=== PATIENT | male | born 1935 | race Caucasian/White ===

== ENCOUNTER 2018-06-22 12:42 | Emergency (ER) | payer MEDICARE, OTHER ==
[2018-06-22 12:48] VITALS: BP 143/47
[2018-06-22] MEDS ORDERED: DEXAMETHASONE 10 MG/ML VIAL PO STA (13:53)
[2018-06-22] MEDS ORDERED: CHERRY SYRUP 10 ML UDC PO ONE (13:54)
--- NOTE | 2018-06-22 14:10 | ED Physician Documentation ---
History of Present Illness - Stated complaint Stated Complaint: BACK PX - Chief complaint Chief Complaint: Back Pain - History obtained from History obtained from: Patient, Family - History of Present Illness Timing: How many days ago (several) Pain level max: 7 Pain level now: 4 - Additonal information Additional information: Patient is an 82-year-old male, retired [employer] who was moving boards on his deck the other day when he injured his back. Since that time. Has had intermittent back pain, pain has been radiating down the left leg into the left foot. Has had intermittent numbness and tingling to the foot. No loss of bowel or bladder control. Better with rest, worse with walking and standing. Review of Systems Constitutional: denies: Fever, Chills Cardiac: denies: Chest pain / pressure Respiratory: denies: Cough GI: denies: Abdominal Pain, Nausea, Vomiting, Diarrhea : denies: Unable to Void, Incontinent Skin: denies: Rash Musculoskeletal: denies: Neck pain PD PAST MEDICAL HISTORY - Past Medical History Cardiovascular: Hypertension, High cholesterol, Coronary artery disease Musculoskeletal: Gout - Past Surgical History Past Surgical History: Yes General: Appendectomy Ortho: Rotator cuff repair, Arthroscopic surgery Cardiovascular: Coronary stent HEENT: Cataracts - Present Medications Home Medications: Ambulatory Orders Medication Instructions Recorded Confirmed Methylprednisolone [Medrol] 4 mg PO DAILY #1 tab.ds.pk 06/22/18 - Allergies Allergies/Adverse Reactions: Allergies Allergy/AdvReac Type Severity Reaction Status Date / Time No Known Drug Allergies Allergy Verified 06/22/18 12:48 - Social History Does the pt smoke?: No Smoking Status: Never smoker Does the pt drink ETOH?: Yes Does the pt have substance abuse?: No - Immunizations Immunizations are current?: Yes PD ED PE NORMAL - Vitals Vital signs reviewed: Yes - General General: Alert and oriented X 3, No acute distress, Well developed/nourished - HEENT HEENT: Moist mucous membranes - Neck Neck: Supple, no meningeal sign, No bony TTP - Cardiac Cardiac: RRR - Respiratory Respiratory: No respiratory distress, Clear bilaterally - Abdomen Abdomen: Soft, Non tender, Non distended - Back Back: No CVA TTP, No spinal TTP, Other (No tenderness palpation or percussion. No midline Tenderness.) - Derm Derm: Warm and dry - Extremities Extremities: Other (Mild decreased sensation over the Lateral aspect of the foot. Neurovascularly intact. Good strength. Normal great toe extension. no saddle anesthesia) - Neuro Neuro: Alert and oriented X 3, No motor deficit - Psych Psych: Normal mood, Normal affect Results - Vitals Vitals: Vital Signs - 24 hr 06/22/18 12:43 Temperature 36.3 C L Heart Rate 53 L Respiratory 18 Rate Blood Pressure 143/47 H O2 Saturation 95 Oxygen O2 Source Room air PD MEDICAL DECISION MAKING - ED course Complexity details: re-evaluated patient, considered differential (no cauda equina, no spinal epidural abscess, no fracture, no aortic dissection or evidence of aneursym rupture), d/w patient, d/w family ED course: Patient is an 82-year-old male who presents to the emergency room with what appears to be sciatica. No evidence of cauda equina. He would likely benefit from an MRI but no MRI is available here today. Did discuss transfer, but he declines this at this time. He will follow-up with his doctor and have an outpatient MRI scheduled. Until then we will place him on a steroid taper. Declines any pain medication here or for home. Patient counseled regarding signs and symptoms for which I believe and urgent re-evaluation would be necessary. Patient with good understanding of and agreement to plan and is comfortable going home at this time This document was made in part using voice recognition software. While efforts are made to proofread this document, sound alike and grammatical errors may occur. - Sepsis Event Vital Signs: Vital Signs - 24 hr 06/22/18 12:43 Temperature 36.3 C L Heart Rate 53 L Respiratory 18 Rate Blood Pressure 143/47 H O2 Saturation 95 Oxygen O2 Source Room air Departure - Departure Disposition: 01 Home, Self Care Clinical Impression: Sciatica Qualifiers: Laterality: left Qualified Code(s): M54.32 - Sciatica, left side Condition: Good Instructions: ED Sciatica Follow-Up: AMARILYS PARKS SI [Primary Care Provider] - Tomorrow Prescriptions: Methylprednisolone [Medrol] 4 mg PO DAILY #1 tab.ds.pk Comments: Call Dr. Parks to schedule an urgent L spine MRI. Return if you worsen. Discharge Date/Time: 06/22/18 14:35
== END 2018-06-22 14:35 | disposition home or self-care (01) ==
LOC: ED 12:42
DX: M54.32 Sciatica, left side (principal); I10 Essential (primary) hypertension
CPT/HCPCS: 99283; A9270

== ENCOUNTER 2018-06-23 13:40 | Outpatient (CLI) | payer MEDICARE, OTHER ==
[2018-06-23] MEDS ORDERED: GADOBUTROL 7.5 MMOL/7.5 ML VIAL ONE (14:42)
[2018-06-23] MEDS ORDERED: GADOBUTROL 7.5 MMOL/7.5 ML VIAL IVP ONE (15:20)
--- NOTE | 2018-06-23 18:43 | MRI Report ---
Procedure Date: 06/23/2018 Accession Number: [id number] / [id number] Procedure: MRI - Lumbar Spine W/WO CPT Code: FULL RESULT: EXAM: MRI LUMBAR SPINE WITHOUT AND WITH CONTRAST. INDICATION: 82-year-old male with radicular low back pain. TECHNIQUE: 1. T2 coronal. 2. Sagittal STIR, T1 and T2. 3. Axial T1 and T2. 4. 7.5 cc IV Gadavist. T1 axial and fat saturated T1 sagittal. COMPARISON: None. FINDINGS: There appear to be 5 [id number], lumbar-type vertebrae. There is a minimal, dextroconvex curvature with apex at L1. There is a mild, levoconvex curvature with apex at the L3-L4 disk level. With the patient lying supine the Hernadez angle for the levoconvex scoliosis measures about 12 degrees. In the sagittal plane there is a minor (grade 1) anterolisthesis of L5 on S1 measuring roughly 3.5 mm. In addition, there is mild, stepwise retrolisthesis of L2 on L3, L3 on L4 and L4 on L5. There is minimal anterior wedging of the L1 vertebral body. The vertebral body heights are otherwise preserved. No evidence of recent lumbar spine compression fracture. Degenerative changes are demonstrated in the disks at all levels. There is severe disk space narrowing at L1-L2, L2-L3 and L3-L4 with moderate to severe narrowing at L4-L5 and mild to moderate narrowing at L5-S1. There is minor, type I reactive marrow change in the vertebral endplates at L4-L5 on the right. In addition, there appears to be minor marrow edema in the right pedicle of L5. This probably represents reactive change secondary to right L4-L5 or L5-S1 degenerative facet arthrosis. The possibility of stress reaction or other pathology is considered less likely. A few intraosseous hemangiomata are demonstrated. Type II reactive marrow changes are seen in the vertebral endplates at L1-L2. The marrow signal intensity is otherwise unremarkable. The conus terminates in an appropriate fashion above the L1-L2 disk level. There is no abnormal thickening or lipomatous change of the filum. Axial images: L1-L2: Left paracentral protrusion with associated osteophyte causes mass effect on the ventral aspect of the thecal sac. There is left subarticular zone stenosis without apparent impingement of traversing left-sided nerve roots. No significant central zone or right subarticular zone narrowing. Mild left foraminal stenosis. L2-L3: Retrolisthesis. Tiny rides extra foraminal protrusion. Broad-based, left posterolateral and intra/extra foraminal extrusion. Degenerative facet arthrosis without significant bony hypertrophy. Mild redundancy of the ligamenta flava and mild prominence of the intralaminar fat-pad. Circumferential thecal sac compression. There is right subarticular zone stenosis without obvious impingement of traversing right-sided nerve roots. Mild to moderate central zone spinal stenosis. No significant left subarticular zone narrowing. There is moderate to severe right foraminal stenosis (see image 13 of series 401) and there could be compromise of exiting right L2 nerve root. Mild left foraminal stenosis. L3-L4: Retrolisthesis. Broad-based, right paracentral and intra/extra foraminal extrusion. Degenerative facet arthrosis with minimal bony hypertrophy. Mild redundancy of the ligamenta flava. Severe right subarticular zone stenosis. There certainly could be compromise of traversing right L4 nerve root. Mild central zone and left subarticular zone narrowing. There is at least moderate right foraminal stenosis. Minimal left foraminal narrowing. L4-L5: Broad-based, right paracentral and intra/extra foraminal extrusion with associated, minor intraforaminal osteophyte. Small left intra/extra foraminal protrusion or extrusion. Degenerative facet arthrosis with minimal bony hypertrophy. Mild to moderate redundancy of the ligamenta flava. Severe subarticular zone stenosis bilaterally. Mild to moderate central zone spinal stenosis. Severe right and at least moderate left foraminal stenoses. Perineural fat surrounding exiting right L4 nerve root is effaced. L5: A roughly 6.5 mm maximal AP by 13 mm maximal transverse by 13 mm maximal craniocaudad, mass is identified in the ventral epidural space on the left. There is no enhancements on postcontrast sequences. This appears to represent a superiorly migrated, extruded or sequestered disk fragment from a left L5-S1 extrusion. There is associated, left subarticular zone stenosis with possible compromise of left L5 nerve root. L5-S1: Anterolisthesis with associated uncovering of the disk. In addition, there is a superiorly directed, left paracentral extrusion. Small left intra/extra foraminal extrusion. Advanced degenerative facet arthrosis with a least moderate bony hypertrophy. The left subarticular zone is completely effaced with probable compromise of the traversing left S1 nerve root. Mild central zone spinal stenosis. No significant-appearing right subarticular zone narrowing. Severe left and mild right foraminal stenoses. The left common intraforaminal extrusion contacts the undersurface of the exiting L5 nerve roots. The perineural fat is partially effaced. Postcontrast sequence shows and no evidence of abnormal intraspinal enhancement. There is moderately advanced fatty atrophy in the posterior paraspinal musculature. Incompletely assessed in the field of view provided is a roughly 3.1 cm rounded, homogeneous T2 hyperintense mass-like lesion arising from posterior cortex, lower pole left kidney almost certainly a benign cortical cyst. There is a roughly 5 mm diameter cortical cyst posteriorly in mid pole right kidney. IMPRESSION: 1. Degenerative disk and facet changes are seen throughout the lumbar spine as documented in detail above. 2. With respect to radicular symptoms, probably the most significant finding is at the L5-S1 level where there is a left-sided extrusion and there is an associated, superiorly migrated disk fragment in the left ventral epidural space. The disk fragment is probably causing compromise of the left L5 nerve root. Recommend clinical correlation for left L5 radiculitis/radiculopathy. 3. Other significant stenoses include the following: A. Severe right foraminal stenosis at L2-L3. There certainly could be compromise of exiting right L2 nerve root. Clinical correlation for possible right L2 radiculopathy. B. Severe right subarticular zone stenosis at L3-L4. There certainly could be compromise of traversing right L4 nerve root. Recommend clinical correlation for possible right L4 radiculopathy. C. Severe subarticular zone stenoses at L4-L5 worse on the right than the left. There certainly could be compromise of traversing right L5 nerve root in the right subarticular zone. D. High-grade right L4-L5 foraminal stenosis with almost certain compromise of exiting right L4 nerve root.
== END 2018-06-23 13:41 | disposition home or self-care (01) ==
LOC: DI 13:40
PROVIDERS: ATTEND Internal Medicine
DX: M51.16 Intervertebral disc disorders with radiculopathy, lumbar region (principal); M48.061 Spinal stenosis, lumbar region without neurogenic claudication
CPT/HCPCS: 72158; A9585

== ENCOUNTER 2023-08-28 09:10 | Outpatient (CLI) | payer MEDICARE, OTHER ==
[2023-08-28 15:17] LABS: BASOPHILS % (AUTO) 0.6 %; EOSINOPHILS # (AUTO) 0.2 10^3/uL (0.0-0.7); EOSINOPHILS % (AUTO) 3.6 %; HCT - HEMATOCRIT 36.1 % (42.0-52.0); HGB - HEMOGLOBIN 12.2 g/dL (14.0-18.0); LYMPHOCYTES # (AUTO) 1.6 10^3/uL (1.5-3.5); LYMPHOCYTES % (AUTO) 29.9 %; MEAN CORPUSCULAR HEMOGLOBIN 34.1 pg (27.0-31.0); MEAN CORPUSCULAR HGB CONC 33.8 g/dL (32.0-36.0); MEAN CORPUSCULAR VOLUME 100.8 fL (80.0-94.0); MEAN PLATELET VOLUME 9.5 fL (7.4-11.4); MONOCYTES # (AUTO) 0.4 10^3/uL (0.0-1.0); NEUTROPHILS % (AUTO) 57.7 %; PLT - PLATELET COUNT 195 10^3/uL (130-450); RED BLOOD COUNT 3.58 10^6/uL (4.70-6.10); RED CELL DISTRIBUTION WIDTH 12.7 % (12.0-15.0); WHITE BLOOD COUNT 5.3 x10^3/uL (4.8-10.8)
== END 2023-08-28 09:11 | disposition home or self-care (01) ==
LOC: LAB.S 09:10
PROVIDERS: ATTEND Internal Medicine
DX: I12.9 Hypertensive chronic kidney disease with stage 1 through stage 4 chronic kidney disease, or unspecified chronic kidney disease (principal); N18.30 Chronic kidney disease, stage 3 unspecified; Z86.2 Personal history of diseases of the blood and blood-forming organs and certain disorders involving the immune mechanism
CPT/HCPCS: 36415; 85025

== ENCOUNTER 2023-09-02 08:39 | Outpatient (CLI) | payer MEDICARE, OTHER ==
[2023-09-02 14:45] LABS: BASOPHILS % (AUTO) 0.7 %; EOSINOPHILS # (AUTO) 0.1 10^3/uL (0.0-0.7); HCT - HEMATOCRIT 38.4 % (42.0-52.0); HGB - HEMOGLOBIN 12.8 g/dL (14.0-18.0); LYMPHOCYTES # (AUTO) 1.5 10^3/uL (1.5-3.5); LYMPHOCYTES % (AUTO) 26.7 %; MEAN CORPUSCULAR HEMOGLOBIN 33.8 pg (27.0-31.0); MEAN CORPUSCULAR HGB CONC 33.3 g/dL (32.0-36.0); MEAN CORPUSCULAR VOLUME 101.3 fL (80.0-94.0); MEAN PLATELET VOLUME 9.4 fL (7.4-11.4); MONOCYTES # (AUTO) 0.6 10^3/uL (0.0-1.0); MONOCYTES % (AUTO) 11.5 %; NEUTROPHILS # (AUTO) 3.2 10^3/uL (1.5-6.6); NEUTROPHILS % (AUTO) 58.9 %; PLT - PLATELET COUNT 209 10^3/uL (130-450); RED BLOOD COUNT 3.79 10^6/uL (4.70-6.10); RED CELL DISTRIBUTION WIDTH 12.9 % (12.0-15.0); WHITE BLOOD COUNT 5.5 x10^3/uL (4.8-10.8)
== END 2023-09-02 08:40 | disposition home or self-care (01) ==
LOC: LAB.S 08:39
PROVIDERS: ATTEND Physician Assistant
DX: I12.9 Hypertensive chronic kidney disease with stage 1 through stage 4 chronic kidney disease, or unspecified chronic kidney disease (principal); N18.30 Chronic kidney disease, stage 3 unspecified; D53.9 Nutritional anemia, unspecified
CPT/HCPCS: 36415; 82607; 82728; 82746; 83540; 84466; 85025

== ENCOUNTER 2024-06-09 09:58 | Emergency (ER) | payer MEDICARE, OTHER ==
--- NOTE | 2024-06-09 10:19 | ED Physician Documentation ---
History of Present Illness - Stated complaint Stated Complaint: AFIB - Chief complaint Chief Complaint: Cardiac - History obtained from History obtained from: Patient - History of Present Illness Timing: Today Pain level max: 0 Pain level now: 0 - Additonal information Additional information: 88-year-old male presents to the emergency department complaint of intermittent palpitations. He does not feel his heart racing, only feels the palpitation as his heart beating harder than usual for 1 to 2 seconds. He went to the walk-in clinic today and was found to be in atrial fibrillation with rapid ventricular response. He does have a history of a stent in 2006 placed at [facility] in [place]. Has not seen a recruitment advertising manager in several years. He is on Plavix and aspirin. No chest pain. No shortness of breath. No lightheadedness or dizziness. No falls or trauma. Otherwise asymptomatic. Review of Systems Constitutional: denies: Fever, Chills GI: denies: Vomiting, Diarrhea Skin: denies: Rash Musculoskeletal: denies: Neck pain, Back pain Neurologic: denies: Headache PD PAST MEDICAL HISTORY - Past Medical History Past Medical History: Yes Cardiovascular: Hypertension, High cholesterol, Coronary artery disease Musculoskeletal: Gout - Past Surgical History Past Surgical History: Yes General: Appendectomy Ortho: Rotator cuff repair, Arthroscopic surgery Cardiovascular: Coronary stent HEENT: Cataracts - Present Medications Home Medications: Ambulatory Orders Medication Instructions Recorded Confirmed methylPREDNISolone [Medrol] 4 mg PO DAILY #1 tab.ds.pk 06/22/18 Apixaban [Eliquis] 5 mg PO BID #60 tablet 06/09/24 - Allergies Allergies/Adverse Reactions: Allergies Allergy/AdvReac Type Severity Reaction Status Date / Time No Known Drug Allergies Allergy Verified 06/09/24 10:13 - Social History Does the pt smoke?: No Smoking Status: Never smoker Does the pt drink ETOH?: Yes Does the pt have substance abuse?: No - Immunizations Immunizations are current?: Yes - POLST Patient has POLST: No PD ED PE NORMAL - Vitals Vital signs reviewed: Yes - General General: Alert and oriented X 3, No acute distress - HEENT HEENT: Moist mucous membranes - Neck Neck: Supple, no meningeal sign - Cardiac Cardiac: Other (irregularly irregular.) - Respiratory Respiratory: No respiratory distress, Clear bilaterally - Abdomen Abdomen: Soft, Non tender, Non distended - Derm Derm: Warm and dry - Extremities Extremities: No edema, No calf tenderness / cord - Neuro Neuro: Alert and oriented X 3 Results - Vitals Vitals: Vital Signs - 24 hr 06/09/24 06/09/24 06/09/24 10:08 10:45 10:50 Temperature 35.8 C L Heart Rate 88 111 H 100 Respiratory 20 14 17 Rate Blood Pressure 147/114 H 129/56 L 127/69 O2 Saturation 100 94 94 06/09/24 06/09/24 06/09/24 10:55 11:10 11:25 Temperature Heart Rate 104 H 102 H 108 H Respiratory 17 15 17 Rate Blood Pressure 127/69 129/66 131/73 H O2 Saturation 94 97 96 06/09/24 06/09/24 12:30 13:30 Temperature Heart Rate 105 H 104 H Respiratory 20 17 Rate Blood Pressure 105/87 H 109/78 O2 Saturation 96 96 Oxygen O2 Source Room air - EKG (time done) 1006 EKG releavant findings:: EKG personally interpreted by author of this note. Relevant findings are: Rate: Rate (enter#) (113) Rhythm: Atrial fibrillation (RVR) [place]: Normal Intervals: LBBB (incomplete) QRS: LVH Ischemia: Non specific changes - Labs Labs: Laboratory Tests 06/09/24 06/09/24 10:25 10:25 WBC 6.1 RBC 4.12 L Hgb 14.1 Hct 41.5 L MCV 100.7 H MCH 34.2 H MCHC 34.0 RDW 12.7 Plt Count 163 MPV 9.2 Neut # (Auto) 4.4 Lymph # (Auto) 1.1 L [place] # (Auto) 0.5 Eos # (Auto) 0.1 Baso # (Auto) 0.0 Absolute Nucleated RBC 0.00 Nucleated RBC % 0.0 Sodium 134 L Potassium 4.2 Chloride 95 L Carbon Dioxide 33 H Anion Gap 6.0 BUN 20 Creatinine 1.1 Estimated GFR (MDRD) 63 L Glucose 115 H Calcium 9.5 Phosphorus 3.5 Magnesium 1.8 Total Bilirubin 1.1 H AST 15 ALT 13 Alkaline Phosphatase 52 Troponin I High Sens 18.7 Total Protein 6.7 Albumin 4.3 Globulin 2.4 Albumin/Globulin Ratio 1.8 Lipase 12 - Rads (name of study) cxr Relevant Findings:: Final report received, See rad report PD Medical Decision Making - ED course Complexity details: reviewed results, re-evaluated patient, considered differential, d/w patient ED course: 88-year-old male presents to the emergency department with what appears to be asymptomatic atrial fibrillation with RVR. He is on metoprolol at home, 50 mg in the morning and 25 mg at night. This is extended release. He does have a history of a stent, placed in 2005. He is on Plavix and aspirin. His rate was controlled here with a single dose of IV metoprolol. No chest pain. No shortness of breath. No significant lab abnormalities. Spoke with Dr. Pires, cardiology at [facility] in [place]. She recommends increase the metoprolol to 50 mg p.o. twice daily and stop the Plavix. Recommend starting Eliquis. 5 mg p.o. twice daily. We will have the patient follow-up with his doctor for further care as well as with cardiology as an outpatient. He will return if he develops symptoms such as chest pain, shortness of breath or other new or worrisome symptoms. Patient counseled regarding signs and symptoms for which I believe and urgent re-evaluation would be necessary. Patient with good understanding of and agreement to plan and is comfortable going home at this time This document was made in part using voice recognition software. While efforts are made to proofread this document, sound alike and grammatical errors may occur. Departure - Departure Disposition: 01 Home, Self Care Clinical Impression: Atrial fibrillation Qualifiers: Atrial fibrillation type: unspecified Qualified Code(s): I48.91 - Unspecified atrial fibrillation Condition: Good Instructions: ED Afib Follow-Up: LINDA DELEON MD [Primary Care Provider] - Within 1 week Prescriptions: Apixaban [Eliquis] 5 mg PO BID #60 tablet Comments: Your prescription was sent to [facility] in [place]. As we discussed you are to stop your Plavix and start to the Eliquis. You should also increase your metoprolol to 50 mg by mouth twice daily. Your doctor has put in a referral back to cardiology for you. I spoke with Dr. Pires today. As we also discussed you need to be cautious of any bleeding. If you fall and strike your head, you need to be seen in the emergency department right away. Please return for any new or worsening symptoms. Forms: PCP List Discharge Date/Time: 06/09/24 13:50
[2024-06-09 10:31] LABS: BASOPHILS % (AUTO) 0.3 %; EOSINOPHILS # (AUTO) 0.1 10^3/uL (0.0-0.7); HCT - HEMATOCRIT 41.5 % (42.0-52.0); HGB - HEMOGLOBIN 14.1 g/dL (14.0-18.0); LYMPHOCYTES # (AUTO) 1.1 10^3/uL (1.5-3.5); LYMPHOCYTES % (AUTO) 17.8 %; MEAN CORPUSCULAR HEMOGLOBIN 34.2 pg (27.0-31.0); MEAN CORPUSCULAR VOLUME 100.7 fL (80.0-94.0); MEAN PLATELET VOLUME 9.2 fL (7.4-11.4); MONOCYTES # (AUTO) 0.5 10^3/uL (0.0-1.0); MONOCYTES % (AUTO) 8.4 %; NEUTROPHILS # (AUTO) 4.4 10^3/uL (1.5-6.6); NEUTROPHILS % (AUTO) 72.2 %; PLT - PLATELET COUNT 163 10^3/uL (130-450); RED BLOOD COUNT 4.12 10^6/uL (4.70-6.10); RED CELL DISTRIBUTION WIDTH 12.7 % (12.0-15.0); WHITE BLOOD COUNT 6.1 x10^3/uL (4.8-10.8)
[2024-06-09] MEDS: METOPROLOL 5 MG/5 ML VIAL IVP STA (10:40)
--- NOTE | 2024-06-09 10:43 | XRAY Report ---
PROCEDURE: Chest 1V INDICATIONS: Chest Pain TECHNIQUE: One view of the chest was acquired. COMPARISON: None. FINDINGS: Surgical changes and devices: None. Lungs and pleura: No dense consolidation or pleural effusion. Mediastinum: Borderline cardiomegaly Bones and chest wall: Degenerative changes IMPRESSION: No dense consolidation or pleural effusion on this limited single view portable study. Borderline cardiomegaly. Reviewed by: Horacio Underwood MD on 06/09/2024 10:41 AM PDT Approved by: Horacio Underwood MD on 06/09/2024 10:41 AM PDT Station ID: [id number]
[2024-06-09 10:51] LABS: ALBUMIN 4.3 g/dL (3.2-5.5); ALBUMIN/GLOBULIN RATIO 1.8 (1.0-2.2); BILIRUBIN,TOTAL 1.1 mg/dL (0.2-1.0); CALCIUM 9.5 mg/dL (8.5-10.3); CREATININE 1.1 mg/dL (0.6-1.3); MAGNESIUM 1.8 mg/dL (1.7-2.3); PHOSPHORUS 3.5 mg/dL (2.5-5.0); POTASSIUM 4.2 mmol/L (3.5-4.5); TOTAL PROTEIN 6.7 g/dL (6.4-8.9)
[2024-06-09 10:57] LABS: TROPONIN I HIGH SENSITIVITY 18.7 ng/L (2.3-19.7)
[2024-06-09] MEDS: SODIUM CHLORIDE 0.9% 1,000 ML IV STA (11:34)
[2024-06-09 12:13] VITALS: O2SAT 96
[2024-06-09 13:41] VITALS: BP 109/78
== END 2024-06-09 13:50 | disposition home or self-care (01) ==
LOC: ED 09:58
DX: I48.91 Unspecified atrial fibrillation (principal); I10 Essential (primary) hypertension; E78.00 Pure hypercholesterolemia, unspecified; I25.10 Atherosclerotic heart disease of native coronary artery without angina pectoris; M10.9 Gout, unspecified; Z79.01 Long term (current) use of anticoagulants
CPT/HCPCS: 36415; 80053; 83690; 83735; 84100; 84484; 85025; 93005; 96374; 99284

== ENCOUNTER 2024-06-23 07:00 | Outpatient (CLI) | payer MEDICARE, OTHER ==
[2024-06-23 14:23] LABS: BILIRUBIN,URINE NEGATIVE (NEGATIVE); CLARITY,URINE CLEAR (CLEAR); GLUCOSE, URINE (UA) NEGATIVE (NEGATIVE); KETONES,URINE (UA) NEGATIVE (NEGATIVE); LEUKOCYTE ESTERASE, URINE NEGATIVE (NEGATIVE); NITRITE,URINE NEGATIVE (NEGATIVE); OCCULT BLOOD,URINE NEGATIVE (NEGATIVE); PH,URINE 7.5 PH (5.0-7.5); PROTEIN,URINE NEGATIVE (NEGATIVE); UROBILINOGEN,URINE 0.2 (NORMAL) E.U./dL (NORMAL)
[2024-06-23 14:35] LABS: BACTERIA,URINE None Seen /HPF (None Seen); RBC,URINE None Seen /HPF (0-5); SQUAMOUS EPITHELIAL CELL,UR NONE SEEN (<= Few); WBC,URINE 0-3 /HPF (0-3)
== END 2024-06-23 23:59 | disposition home or self-care (01) ==
LOC: LAB.S 07:00
PROVIDERS: ATTEND Emergency Medicine
DX: R33.9 Retention of urine, unspecified (principal); R30.0 Dysuria
CPT/HCPCS: 81001; 87086

== ENCOUNTER 2024-06-25 07:23 | Outpatient (CLI) | payer MEDICARE, OTHER | END 2024-06-25 07:24 | disposition home or self-care (01) | LOC: LAB.S 07:23 | PROVIDERS: ATTEND Emergency Medicine | DX: R33.9 Retention of urine, unspecified (principal) | CPT/HCPCS: 36415; 84153 ==